=== PATIENT | male | born 1970 | race Caucasian/White ===

== ENCOUNTER 2022-11-24 15:13 | Emergency (ER) | payer BC ==
[2022-11-24] MEDS ORDERED: Iopamidol 612 MG/ML 50 ML SDV IVPUSH ONE (15:44)
[2022-11-24] MEDS ORDERED: Sodium Chloride 0.9% 10 ML Syringe FLUSH PRN (15:44)
[2022-11-24] MEDS ORDERED: Iopamidol 612 MG/ML 100 ML Bottle IVPUSH ONE (15:44)
[2022-11-24] MEDS ORDERED: Sodium Chloride 0.9% 1,000 ML IV SCH (15:45)
[2022-11-24] MEDS ORDERED: HYDROmorphone 0.5 MG/0.5 ML Syringe IVPUSH ONE (16:31)
== END 2022-11-24 18:50 | disposition home or self-care (01) ==
LOC: JD.ED 15:13
DX: S77.11XA Crushing injury of right thigh, initial encounter (principal); S77.12XA Crushing injury of left thigh, initial encounter; E66.9 Obesity, unspecified; Z68.41 Body mass index [BMI] 40.0-44.9, adult; Z86.16 Personal history of COVID-19; W23.1XXA Caught, crushed, jammed, or pinched between stationary objects, initial encounter
CPT/HCPCS: 36415; 73701; 80053; 82550; 85025; 96361; 96374; 99284; J1170; J3490; J7030; Q9967